=== PATIENT | female | born 1940 | race American Indian/Alaskan Native ===

== ENCOUNTER 2021-07-23 05:00 | Emergency (ER) | payer SELFPAY ==
--- NOTE | 2021-07-23 05:45 | Emergency Department Report ---
HPI - General Chief Complaint: Cardiac Arrest/CPR Time Seen by Provider: 07/23/21 05:44 - HPI HPI: 80-year-old female with history of trach placement last seen in her normal state of health at 3 AM brought in by EMS in cardiac arrest. Patient was discovered around 4:10 AM to be unresponsive and pulseless and CPR was initiated at that time. When EMS arrived, the patient was in asystole. CPR was continued and ACLS medications were administered including cardiac epi and empiric naloxone. The patient's trach was intubated and ventilated using an ambu bag. At the time of arrival in the emergency department CPR had been in progress for approximately 45 minutes. Further details of the HPI are highly limited due to the patient's current clinical condition ED Past Medical Hx - Past Medical History Previous Medical History?: Yes - Surgical History Additional Surgical History: Trach placement ED Review of Systems ROS: Stated complaint: CARDIAC ARREST Other details as noted in HPI Comment: Unobtainable due to pts medical conditions Physical Exam - Physical Exam General: GENERAL: Obtunded and unresponsive. Stiff extremities. HEAD: Normocephalic. No obvious signs of trauma. ENT: Moist mucous membranes. EYES: Pupils are fixed and dilated bilaterally. NECK: Trach site with ET tube in place. LUNGS: Bilateral breath sounds with bag ventilation CARDIOVASCULAR: Chest compressions actively being performed. ABDOMEN: Abdomen is soft and nondistended. SKIN: Skin is cool and mottled NEURO: Unresponsive. MUSCULOSKELETAL: No obvious deformities. ED Medical Decision Making - Medical Decision Making 80-year-old female with unknown past medical history although patient has a trach brought in by EMS in cardiac arrest. The patient was discovered unrespons vanessa and pulseless early this morning at about 4:10 AM and CPR was initiated. ACLS medications were given and the patient was transported to our emergency department. Her trach was intubated and she was ventilated using an Ambu bag. The patient was in asystole and never regained a pulse or any kind of electrical activity. Upon arrival to our emergency department, the patient was found to be obtunded, unresponsive, and with stiff cool extremities. Pupils are fixed and dilated bilaterally. ACLS protocol was followed and patient was administered cardiac epi. Given the patient's multiple comorbidities and the prolonged duration of resuscitation, bedside ultrasound was performed and revealed no cardiac activity. Unfortunately the patient never regained a pulse and time of was called at [id number] Critical care attestation.: If time is entered above; I have spent that time in minutes in the direct care of this critically ill patient, excluding procedure time. ED Disposition Clinical Impression: Cardiac arrest Disposition: 20 Is pt being admited?: No
[2021-07-23] MEDS ORDERED: EPINEPHrine 1 MG/10 ML SYRINGE ONE (16:03)
[2021-07-23] MEDS ORDERED: SODIUM BICARB 8.4% 50 MEQ/50 ML SYRINGE IV ONE (16:03)
[2021-07-23] MEDS ORDERED: ATROPINE 0.1% (1 MG/10 ML) CARDIAC SYRINGE ONE (16:03)
[2021-07-23] MEDS ORDERED: CALCIUM CHLORIDE 1,000 MG/10 ML SYRINGE IV ONE (16:03)
== END 2021-07-23 06:00 ==
LOC: ED 05:00
DX: I46.9 Cardiac arrest, cause unspecified (principal)
CPT/HCPCS: 92950; 99285; J0171; J0461; J3490